=== PATIENT | female | born 1990 | race Caucasian/White ===

== ENCOUNTER 2024-12-29 20:42 | Emergency (ER) | payer OTHER, SELFPAY ==
[2024-12-29 20:56] VITALS: BP 120/68; PULSE 74; TEMP 36.9; O2SAT 98; BMI 32.0
--- NOTE | 2024-12-29 21:05 | ED_ITS ---
HPI HPI - General Adult General Chief complaint: Headache Stated complaint: MIGRAINE Time Seen by Provider: 12/29/24 20:48 Source: patient Mode of arrival: walk-in Limitations: no limitations History of Present Illness HPI narrative: 34 year old female presents to the ED for a headache. Onset was earlier today. Reports history of migraines. States the pain is generalized. Reports her vision went black earlier today which is unusual for her. Denies fever, chills, dizziness, neck pain/stiffness. Denies N/V. States she took magnesium, Tylenol, and Claritin today without relief. She is and driving today which limits her pain treatment options here. Pt's infant is also being seen. Pt is requesting Dilaudid; states her 17 year old daughter is driving home. Related Data Allergies Allergy/AdvReac Type Severity Reaction Status Date / Time NSAIDS (Non-Steroidal Allergy Mild rash Verified 12/29/24 21:00 Anti-Inflamma Opioid HPI Opioid Management Most Recent Opioid Data: Last Pain Scale 9 12/29/24, 21:00 Review of Systems ROS Constitutional Denies: fever, chills or fatigue Eyes Reports: change in vision Ears, nose, mouth, and throat Denies: throat pain or neck pain Cardiovascular Denies: chest pain Respiratory Denies: shortness of breath Gastrointestinal Denies: abdominal pain, nausea or vomiting Musculoskeletal Denies: back pain or neck pain Integumentary/Breast Denies: rash Neurological Reports: headache; Denies: numbness in extremities, weakness in extremities, lack of coordination, dizziness or slurred speech PFSH PFSH Social History Little interest or pleasure in doing things: not at all Feeling down, depressed, or hopeless: not at all Exam Constitutional Vital Signs, click to edit/add: Last Vital Signs Temp 98.4 F 12/29/24 20:56 Pulse 74 12/29/24 20:56 Resp 18 12/29/24 20:56 BP 120/68 12/29/24 20:56 Pulse Ox 98 12/29/24 20:56 O2 Del Method Room Air 12/29/24 20:56 Common normals: no apparent distress and oriented x3 General appearance: cooperative HENMT Common normals: external ears normal and moist oral mucous membranes Eye Common normals: PERRL, EOMs intact bilaterally, conjunctivae normal and no scleral icterus Neck & C-Spine Common normals: supple and no meningeal signs Chest Chest: symmetrical chest wall rise Respiratory Common normals: normal respiratory effort Effort & inspection: able to speak in complete sentences and symmetric chest movement Cardio Common normals: regular rate and regular rhythm Neuro Common normals: oriented x3, CN's II-XII intact bilaterally, moves all extremities and no focal motor deficits Sensorium/orientation: awake and alert Speech: speech normal Gait (neuro): normal gait Course Vital Signs Vital signs: Vital Signs Temperature 98.4 F 12/29/24 20:56 Pulse Rate 74 12/29/24 20:56 Respiratory Rate 18 12/29/24 20:56 Blood Pressure 120/68 12/29/24 20:56 Pulse Oximetry 98 12/29/24 20:56 Oxygen Delivery Method Room Air 12/29/24 20:56 Temperature 98.4 F 12/29/24 20:56 Pulse Rate 74 12/29/24 20:56 Respiratory Rate 18 12/29/24 20:56 Blood Pressure 120/68 12/29/24 20:56 Pulse Oximetry 98 12/29/24 20:56 Oxygen Delivery Method Room Air 12/29/24 20:56 Medical Decision Making MDM Narrative Medical decision making narrative: CT scan was negative for acute findings. Findings were discussed. She was driving, is , and reports an allergy to NSAIDS; this limited her pain treatment options here. Pt requested Dilaudid and stated her 17 year old daughter would drive her home. The patient was advised narcotics would not be given today. She was given Solumedrol here. She reported she took tylenol just p rior to arrival. She was encouraged to follow up with her primary care provider for a recheck, further evaluation and treatment. Medical Records Medical records reviewed: Yes I reviewed the patient's medical records Imaging Data CT scan - head: Attestation: I have reviewed the pertinent imaging results. Radiologist's impression: No acute intracranial abnormality. Discharge Plan Discharge Chief Complaint: Headache Clinical Impression: Headache Patient Disposition: Home, Self-Care Time of Disposition Decision: 21:54 Condition: Good Mode of Transportation: Private Vehicle Print Language: Mongolian Instructions: Acute Headache (ED) Additional Instructions: Follow up with your primary care provider for a recheck, further evaluation and treatment. Return to the ER if your condition worsens. Referrals: Physician,Non-Staff, [Physician] - 1 week Discharge Date/Time: 12/29/24 22:04
[2024-12-29] MEDS: METHYLPREDNISOLONE SOD SUCC PF 125 MG/2 ML VIAL IM (21:45)
--- NOTE | 2024-12-29 22:05 | PC.NURSE ---
i gave this patient verbal and written discharge orders and this patient voices yes to understanding these. at time of discharge this patient voices no concerns and shows no signs of distress
== END 2024-12-29 22:04 | disposition home or self-care (01) ==
PROVIDERS: Emergency Provider Internal Medicine; PCP Internal Medicine
DX: R51.9 Headache, unspecified (principal)
CPT/HCPCS: 70450; 96372; 99285; J2919